=== PATIENT | male | born 1965 | race African-American/Black ===

== ENCOUNTER → 2016-05-09 | Outpatient (REF) | payer OTHER ==
[2016-05-09 16:51] LABS: BLOOD UREA NITROGEN 16 MG/DL (7-18); CREATININE FOR GFR 1.32 MG/DL (0.70-1.30); GLOMERULAR FILTRATION RATE > 60.0 (>60)
== END ==
LOC: M LABNEURO 15:29
PROVIDERS: ATTEND Psychiatry & Neurology Neurology
DX: N18.9 Chronic kidney disease, unspecified (principal)

== ENCOUNTER → 2020-02-09 | Outpatient (CLI) | payer OTHER | LOC: M LABSMTC 10:44 | PROVIDERS: ATTEND Pediatrics | DX: Z20.828 Contact with and (suspected) exposure to other viral communicable diseases (principal) ==

== ENCOUNTER → 2020-11-03 | Outpatient (CLI) | payer OTHER ==
--- NOTE | 2020-11-03 12:31 | REP ---
INDICATION: BILATERAL PRIMARY OSTEOARTHRITIS. COMPARISON: None. TECHNIQUE: Single AP weightbearing view of the right and left knee along with AP, lateral, and sunrise views of the right and left knee. FINDINGS: Right knee demonstrates relatively age related changes including increased sclerosis to the tibial plateau and posterior patellar margin with subtle patellar spurring. Weightbearing view demonstrates relatively maintained joint space. No acute fracture or dislocation. Left knee demonstrates prior ACL repair along with moderate arthritic changes including increased sclerosis to the tibial plateau and posterior patella, cortical irregularities of the distal femur, proximal tibia and patella as well as associated early spurring/osteophyte formation. Weightbearing view suggests decreased joint space predominately involving the lateral compartment. No acute fracture or dislocation. IMPRESSION: Age-related and moderate arthritic and possibly posttraumatic degenerative changes. <Electronically signed by Howie Mariscal > 11/03/20 [id number]
== END ==
LOC: M SOG 09:34
PROVIDERS: ATTEND Orthopaedic Surgery Sports Medicine
DX: M17.0 Bilateral primary osteoarthritis of knee (principal)

== ENCOUNTER → 2020-11-11 | Outpatient (CLI) | payer OTHER ==
--- NOTE | 2020-11-11 20:04 | REP ---
INDICATION: TEAR OF LT KNEE MENISCUS. Surgery for ACL reconstruction 2004 in [place]. Knee feels stable on clinical exam.. COMPARISON: X-ray 11/03/2020. TECHNIQUE: Our standard knee MRI protocol without contrast FINDINGS: Magnetic susceptibility artifact from metallic fasteners about the proximal and the distal femoral tunnel and the tibial plateau about distal end of the tibial tunnel from ACL reconstruction. That said the visualized ACL is grossly intact the PCL shows no laxity. There is no evidence for any significant joint effusion. The medial compartment shows a some grade 2 and grade 3 signal changes in the medial femoral condyle articular cartilage seen on both coronal and sagittal images with a evelia placed on the images over that central a portion of the medial femoral condyle. In addition there may be a flap of cartilage interposed and rotated anteriorly versus other loose body in the central aspect of the tibial plateau seen best on image 24 of the T2 fat suppressed sequence in sagittal projection. The posterior horn of the medial meniscus is mildly truncated which may be evidence for chronic tear I cannot confirm any intrasubstance signal abnormality within the visible meniscus in its anterior or posterior horns. There is no popliteal fossa cyst. Medial and lateral femoral condyles show no definite bone bruise or fracture tibial plateau without a definite fracture or bone bruise. There is no patellar abnormality visible but visualization of the inferior aspect the patella limited in the T2 sequences. Quadriceps and patellar tendon portions visualized intact. The medial and lateral collateral ligamentous complexes and visualized portions of patellar retinacula intact. No gross evidence for patellar subluxation. No popliteal fossa cyst. IMPRESSION: 1. Grade 2-3 articular cartilage injury centrally in the medial femoral condyle some mild the cartilage changes of the tibial plateau and lateral compartment. A possible cartilage flap rotated anteriorly noted versus loose body just anterior to the articular cartilage tear that extends to the cortex in that condyle. The medial meniscus shows posterior horn slightly truncated which may be evidence of prior, chronic tear I do not see definite intrasubstance signal suggesting acute tear but somewhat limited postsurgical exam from remote ACL repair. 2. Magnetic susceptibility artifact in the distal tibia and fibula from prior ACL reconstruction. Visualized ACL, PCL, lateral meniscus, collateral ligamentous complexes and extensor mechanism grossly intact. 3. No evidence of a gross joint effusion. The proximal tibiofibular articulation intact. <Electronically signed by Dat Mott > 11/11/202000
== END ==
LOC: M PLAIMG 15:36
PROVIDERS: ATTEND Orthopaedic Surgery Sports Medicine
DX: S83.242A Other tear of medial meniscus, current injury, left knee, initial encounter (principal); X58.XXXA Exposure to other specified factors, initial encounter; Y92.9 Unspecified place or not applicable; Y99.9 Unspecified external cause status

== ENCOUNTER → 2025-02-10 | Outpatient (REF) | LOC: M PLAIMG 10:20 | PROVIDERS: ATTEND Internal Medicine | DX: M54.50 Low back pain, unspecified (principal) ==